=== PATIENT | female | born 1985 | race African-American/Black ===

== ENCOUNTER 2024-07-11 08:00 | Inpatient (IN) | payer OTHER ==
[2024-07-11] MEDS: ELECTROLYTE-148 SOLN 500 ML IV SCH ×2 (08:20→09:00)
[2024-07-11] MEDS: CITRIC ACID/SODIUM CITRATE 30 ML UNIT-DOSE CUP PO ONE (09:20)
[2024-07-11 09:28] VITALS: BMI 29.2
[2024-07-11] MEDS ORDERED: LIGASURE IMPACT TP ONE (09:49)
[2024-07-11] MEDS ORDERED: PHENYLEPHRINE HCL 10 MG/1 ML SINGLE DOSE VIAL ONE (10:06)
[2024-07-11] MEDS ORDERED: KETOROLAC TROMETHAMINE 30 MG/1 ML VIAL ONE (10:06)
[2024-07-11] MEDS ORDERED: ONDANSETRON 4 MG/2 ML VIAL ONE (10:06)
[2024-07-11] MEDS ORDERED: OXYTOCIN 10 UNITS/ML VIAL ONE (10:06)
[2024-07-11] MEDS ORDERED: ceFAZolin SODIUM 1 GM VIAL ONE (10:07)
[2024-07-11] MEDS ORDERED: morphine SULFATE/PF 1 MG/2 ML (2cc Syringe - QUVA) ONE (10:07)
[2024-07-11] MEDS ORDERED: FENTANYL CITRATE/PF 50 MCG/ML VIAL ONE (10:07)
[2024-07-11] MEDS ORDERED: ONDANSETRON 4 MG/2 ML VIAL IVPB PRN (12:30)
[2024-07-11] MEDS ORDERED: oxyCODONE HCL 5 MG TABLET PO PRN (12:30)
[2024-07-11] MEDS: IBUPROFEN 800 MG/8 ML IJ IVPB SCH (14:35)
[2024-07-11] MEDS: ACETAMINOPHEN 1000 MG/100 ML BAG IVPB SCH (14:36)
[2024-07-11] MEDS ORDERED: OXYTOCIN 20 UNITS in 0.9% NS 20 UNIT/1,000 ML INFUS.BAG IV ONE (14:44)
[2024-07-11] MEDS: OXYTOCIN 20 UNITS in 0.9% NS 20 UNIT/1,000 ML INFUS.BAG IV SCH (14:45)
[2024-07-11] MEDS: ELECTROLYTE-148 SOLN 1,000 ML IV SCH (14:45)
[2024-07-11] MEDS: SIMETHICONE 80 MG TAB.CHEW (FP) PO PRN (20:26)
[2024-07-11] MEDS: SENNOSIDES/DOCUSATE COMBO (SENNA PLUS) TABLET (UD) PO SCH (22:26)
[2024-07-12 08:28] LABS: BASO % 0.3 % (0-2.0); EOS % 1.2 % (0-4.5); HEMATOCRIT 34.1 % (32.4-45.2); HEMOGLOBIN 11.8 GM/dL (10.7-15.3); LYMPH % 5.9 % (8-40); MCH 31.5 pg (25.7-33.7); MCHC 34.5 g/dl (32.0-36.0); MEAN CELL VOLUME 91.3 fl (80-96); MEAN PLT VOLUME 9.8 fl (7.5-11.1); MONO % 2.6 % (3.8-10.2); PLATELET COUNT 118 10^3/uL (134-434); RBC 3.73 M/mm3 (3.60-5.2); RDW 14.4 % (11.6-15.6); WHITE BLOOD COUNT 10.1 K/mm3 (4.0-10.0)
[2024-07-12] MEDS: PRENATAL VITAMINS W/ FOLIC ACID TABLET (FP) PO SCH (09:14)
[2024-07-12] MEDS: ACETAMINOPHEN 500 MG TABLET (FP) PO PRN (09:24)
[2024-07-12] MEDS ORDERED: ACETAMINOPHEN 325 MG TABLET (FP) PO PRN (12:30)
[2024-07-12] MEDS ORDERED: BISACODYL 10 MG SUPP.RECT RC PRN (12:30)
[2024-07-12] MEDS: IBUPROFEN 600 MG TABLET (FP) PO PRN (18:27)
[2024-07-13 09:50] VITALS: RESP 18
[2024-07-13 22:07] VITALS: PULSE 86; TEMP 98.6
[2024-07-14 10:04] VITALS: BP 125/78
== END 2024-07-14 11:50 | disposition home or self-care (01) | DRG 540 ==
LOC: JLDR 08:05 → J3W 15:05
PROVIDERS: ADMIT Specialist; ATTEND Specialist
PROC: 10D00Z1 Extraction of Products of Conception, Low, Open Approach (ICD-10-PCS; principal; 2024-07-11)
PROC: 0UT70ZZ Resection of Bilateral Fallopian Tubes, Open Approach (ICD-10-PCS; 2024-07-11)
DX: O34.219 Maternal care for unspecified type scar from previous cesarean delivery (principal); Z3A.39 39 weeks gestation of pregnancy; Z37.0 Single live birth; Z30.2 Encounter for sterilization
CPT/HCPCS: 36415; 59409; 80053; 85025; 85027; 85610; 85730; 86780; 86850; 86900; 86901; 87389; 88304-TC; 88305-TC; 88307-TC